=== PATIENT | female | born 1955 | race Two or more races ===

== ENCOUNTER 2019-07-15 19:46 | Inpatient (IN) | payer OTHER, BC ==
[~2019-07-15] VITALS: Ht 144.8 cm; Wt 50.0 kg
[2019-07-15 20:34] LABS: PARTIAL THROMBOPLASTIN TIME 25 SECONDS (22-32)
[2019-07-15 20:35] LABS: ALANINE AMINOTRANSFERASE 46 U/L (12-78); ALBUMIN 3.4 G/DL (3.4-5.0); ALBUMIN/GLOBULIN RATIO 0.8 (1.1-1.5); ALKALINE PHOSPHATASE 103 IU/L (46-116); ANION GAP 11 (8-16); ASPARTATE AMINO TRANSFERASE 44 U/L (10-37); BILIRUBIN,TOTAL 0.5 MG/DL (0.1-1.0); BLOOD UREA NITROGEN 20 MG/DL (7-18); BUN/CREATININE RATIO 18.7 (6.6-38.0); CALCIUM 8.7 MG/DL (8.5-10.1); CHLORIDE 108 MMOL/L (99-107); CREATININE 1.07 MG/DL (0.40-0.90); ETHANOL < 0.010 GM/DL (0.0-0.010); POTASSIUM 3.8 MMOL/L (3.5-5.1); SODIUM 143 MMOL/L (135-145); TOTAL CARBON DIOXIDE 24.1 MMOL/L (24-32); TOTAL PROTEIN 7.5 G/DL (6.4-8.2); eGFR 52 ML/MIN
[2019-07-15 20:37] LABS: BASOPHILS % (AUTO) 0.3 % (0-1); EOSINOPHILS # (AUTO) 0.2 X10'3 (0-0.9); EOSINOPHILS % (AUTO) 1.7 % (0-6); HEMATOCRIT 40.6 % (35.0-45.0); HEMOGLOBIN 13.8 g/dl (12.0-16.0); LYMPHOCYTES # (AUTO) 2.7 X10'3 (1.1-4.8); LYMPHOCYTES % (AUTO) 24.9 % (21-51); MEAN CORPUSCULAR HEMOGLOBIN 32.6 PG (27.0-31.0); MEAN PLATELET VOLUME 9.2 FL (7.4-10.4); MONOCYTES # (AUTO) 0.7 X10'3 (0-0.9); MONOCYTES % (AUTO) 6.7 % (2-12); NEUTROPHILS # (AUTO) 7.1 X10'3 (1.8-7.7); NEUTROPHILS % (AUTO) 66.4 % (42-75); PLATELET COUNT 172 X10'3 (140-440); RED BLOOD COUNT 4.23 X10'6 (4.20-5.60); RED CELL DISTRIBUTION WIDTH 12.5 % (11.5-14.5); WHITE BLOOD COUNT 10.7 X10'3 (4.5-11.0)
[2019-07-15 20:44] LABS: GLUCOSE 142 MG/DL (70-104)
--- NOTE | 2019-07-15 20:46 | NUR ---
patient to CT.
[2019-07-15] MEDS ORDERED: temazepam 15mg capsule PO PRN (21:00)
--- NOTE | 2019-07-15 21:06 | NUR ---
Patient back from CT, reports no pain as long a laying down.
--- NOTE | 2019-07-15 21:25 | NUR ---
pt remains in c collar, current vss. given adtl warm blanket , reports she is cold. temp 99.0. updated of the status of her and son (who are currently in ER also). Pt is calm and cooperative. Awaiting ct read.
--- NOTE | 2019-07-15 22:23 | NUR ---
WITH DR. KIRKPATRICK
[2019-07-15] MEDS ORDERED: MELO-102 PO (22:25)
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
[2019-07-15] MEDS ORDERED: HYDR25TA4 PO (22:26)
[2019-07-15] MEDS ORDERED: HYDR-4383 PO (22:27)
[2019-07-15] MEDS ORDERED: OSC500T PO (22:27)
[2019-07-15] MEDS ORDERED: ETAN25KI2 (22:28)
[2019-07-15] MEDS ORDERED: INSU100V9 SQ (22:28)
--- NOTE | 2019-07-15 22:36 | NUR ---
Patient to be admitted to Floor per Dr. Oscar.
--- NOTE | 2019-07-15 22:54 | NUR ---
Family at bedside.
--- NOTE | 2019-07-15 23:45 | NUR ---
Dr. Smith with patient and family.
[2019-07-15] MEDS ORDERED: potassium Cl 20 mEq SR tablet PO PRN ×2 (23:55)
[2019-07-15] MEDS ORDERED: magnesium 4gm in 100ml NS 100 ML IV PRN (23:55)
[2019-07-15] MEDS ORDERED: magnesium Cl slow-release 64mg tablet PO PRN (23:55)
[2019-07-15] MEDS ORDERED: mag hydrox/Alum hydrox/simeth 30ml oral suspension PO PRN (23:55)
[2019-07-15] MEDS ORDERED: magnesium hydroxide 30ml (MOM) UD suspension PO PRN (23:55)
[2019-07-15] MEDS ORDERED: ondansetron/PF 4mg/2ml inj IV PRN (23:55)
[2019-07-15] MEDS ORDERED: acetaminophen 325mg tablet PO PRN (23:55)
[2019-07-15] MEDS ORDERED: potassium CL 10mEq/100ml bag 100 ML IV PRN ×2 (23:55)
[2019-07-15] MEDS ORDERED: magnesium 2GM in 50ml NS 50 ML IV PRN (23:55)
[2019-07-16] VITALS (7 sets, daily range): BP systolic 99–117; BP diastolic 45–59
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
--- NOTE | 2019-07-16 00:40 | NUR ---
Patient arrived to room 310 via gurney. pt was hooked up to bedside monitor. arrived with all known belongings and family is at the bedside.
[2019-07-16] MEDS: normal saline 1000ml 1,000 ML IV SCH ×2 (00:50→14:12)
[2019-07-16 01:39] LABS: CREATINE KINASE 294 U/L (26-192)
[2019-07-16] MEDS ORDERED: HYDR200T84 PO (01:55)
[2019-07-16 04:30] LABS: BASOPHILS % (AUTO) 0.3 % (0-1); EOSINOPHILS % (AUTO) 0.3 % (0-6); HEMATOCRIT 36.4 % (35.0-45.0); HEMOGLOBIN 12.5 g/dl (12.0-16.0); LYMPHOCYTES % (AUTO) 14.5 % (21-51); MEAN CORPUSCULAR HEMOGLOBIN 32.8 PG (27.0-31.0); MEAN CORPUSCULAR HGB CONC 34.4 g/dL (33.0-36.5); MEAN CORPUSCULAR VOLUME 95.1 FL (78-98); MEAN PLATELET VOLUME 8.9 FL (7.4-10.4); MONOCYTES # (AUTO) 0.6 X10'3 (0-0.9); NEUTROPHILS # (AUTO) 5.2 X10'3 (1.8-7.7); NEUTROPHILS % (AUTO) 75.9 % (42-75); PLATELET COUNT 148 X10'3 (140-440); RED BLOOD COUNT 3.82 X10'6 (4.20-5.60); RED CELL DISTRIBUTION WIDTH 12.7 % (11.5-14.5); WHITE BLOOD COUNT 6.9 X10'3 (4.5-11.0)
[2019-07-16 04:31] LABS: ALANINE AMINOTRANSFERASE 42 U/L (12-78); ALBUMIN 3.1 G/DL (3.4-5.0); ALBUMIN/GLOBULIN RATIO 0.9 (1.1-1.5); ALKALINE PHOSPHATASE 90 IU/L (46-116); ANION GAP 10 (8-16); ASPARTATE AMINO TRANSFERASE 35 U/L (10-37); BILIRUBIN,TOTAL 0.9 MG/DL (0.1-1.0); BLOOD UREA NITROGEN 16 MG/DL (7-18); BUN/CREATININE RATIO 22.2 (6.6-38.0); CALCIUM 8.6 MG/DL (8.5-10.1); CHLORIDE 110 MMOL/L (99-107); CREATININE 0.72 MG/DL (0.40-0.90); GLUCOSE 124 MG/DL (70-104); POTASSIUM 3.8 MMOL/L (3.5-5.1); SODIUM 143 MMOL/L (135-145); TOTAL CARBON DIOXIDE 23.4 MMOL/L (24-32); TOTAL PROTEIN 6.7 G/DL (6.4-8.2); eGFR 82 ML/MIN
[2019-07-16 04:34] LABS: MAGNESIUM 1.7 MG/DL (1.5-2.4); PHOSPHORUS 3.4 MG/DL (2.3-4.5)
[2019-07-16] MEDS: HYDROcodone/acetaminophen 5mg/325mg tablet PO PRN (04:36)
--- NOTE | 2019-07-16 06:00 | NUR ---
reviewed and agreed with OLENA Scott's charting
--- NOTE | 2019-07-16 06:05 | NUR ---
Problems reprioritized. Patient report given, questions answered & plan of care reviewed with OLENA Manning.
[2019-07-16] MEDS: K and/or MAG REPLACEMENT MC SCH (07:35)
[2019-07-16] MEDS ORDERED: ATOR40TA72 PO (07:50)
[2019-07-16 08:36] LABS: CLARITY,URINE CLEAR (Clear); COLOR,URINE YELLOW (Yellow); GLUCOSE, URINE NEGATIVE (Neg); KETONES,URINE NEGATIVE (Neg); NITRITES, URINE NEGATIVE (Neg); OCCULT BLOOD,URINE NEGATIVE (Neg); PROTEIN,URINE NEGATIVE (Neg); UA COLLECTION TYPE NON-SPECIFIED; URINE AMPHETAMINE SCREEN NEGATIVE (Neg); URINE BARBITUATE SCREEN NEGATIVE (Neg); URINE BENZODIAZEPINES SCREEN NEGATIVE (Neg); URINE CANNABINOID SCREEN NEGATIVE (Neg); URINE COCAINE SCREEN NEGATIVE (Neg); URINE METHADONE SCREEN NEGATIVE (Neg); URINE OPIATE SCREEN POSITIVE (Neg); URINE PHENCYCLIDINE SCREEN NEGATIVE (Neg)
[2019-07-16 08:37] LABS: LEUKOCYTE ESTERASE ,URINE NEGATIVE (Neg); UROBILINOGEN,URINE 0.2 E.U/dL (0.2-1.0)
--- NOTE | 2019-07-16 09:35 | NUR ---
Paged hospitalist, "Kerri [phone]- Can you address Atorvastin and Plaquenil for Katelnyn Dave in room 310."
[2019-07-16] MEDS: HYDROcodone/acetaminophen 10/325mg tab PO PRN (10:20)
--- NOTE | 2019-07-16 13:12 | NUR ---
Paged hospitalist, "Kerri [phone]- please call [phone] not able to get MRI today"
--- NOTE | 2019-07-16 18:22 | NUR ---
Paged hospitalist, "Kerri [phone]- Room 310 Katleynn Dave- Troponins 0.28, 0.25, 0.27 (most recent) today"
--- NOTE | 2019-07-16 18:25 | NUR ---
Problems reprioritized. Patient report given, questions answered & plan of care reviewed with Edwin HYATT.
[2019-07-17 02:00] VITALS: BP 122/64
[2019-07-17] MEDS: HYDROcodone/acetaminophen 10/325mg tab PO PRN (02:43)
[2019-07-17] MEDS: normal saline 1000ml 1,000 ML IV SCH ×2 (04:30→20:29)
[2019-07-17 05:34] LABS: BASOPHILS % (AUTO) 0.7 % (0-1); EOSINOPHILS # (AUTO) 0.1 X10'3 (0-0.9); EOSINOPHILS % (AUTO) 2.6 % (0-6); HEMATOCRIT 33.8 % (35.0-45.0); HEMOGLOBIN 11.6 g/dl (12.0-16.0); LYMPHOCYTES # (AUTO) 1.7 X10'3 (1.1-4.8); LYMPHOCYTES % (AUTO) 35.4 % (21-51); MEAN CORPUSCULAR HEMOGLOBIN 32.9 PG (27.0-31.0); MEAN CORPUSCULAR HGB CONC 34.3 g/dL (33.0-36.5); MEAN PLATELET VOLUME 8.9 FL (7.4-10.4); MONOCYTES # (AUTO) 0.6 X10'3 (0-0.9); MONOCYTES % (AUTO) 11.6 % (2-12); NEUTROPHILS # (AUTO) 2.4 X10'3 (1.8-7.7); NEUTROPHILS % (AUTO) 49.7 % (42-75); PLATELET COUNT 134 X10'3 (140-440); RED BLOOD COUNT 3.52 X10'6 (4.20-5.60); WHITE BLOOD COUNT 4.8 X10'3 (4.5-11.0)
[2019-07-17 05:53] LABS: ALANINE AMINOTRANSFERASE 32 U/L (12-78); ALBUMIN 2.6 G/DL (3.4-5.0); ALBUMIN/GLOBULIN RATIO 0.7 (1.1-1.5); ALKALINE PHOSPHATASE 80 IU/L (46-116); ANION GAP 9 (8-16); ASPARTATE AMINO TRANSFERASE 23 U/L (10-37); BLOOD UREA NITROGEN 13 MG/DL (7-18); BUN/CREATININE RATIO 22.8 (6.6-38.0); CHLORIDE 110 MMOL/L (99-107); CREATININE 0.57 MG/DL (0.40-0.90); GLUCOSE 123 MG/DL (70-104); MAGNESIUM 1.6 MG/DL (1.5-2.4); PHOSPHORUS 2.8 MG/DL (2.3-4.5); POTASSIUM 3.9 MMOL/L (3.5-5.1); SODIUM 142 MMOL/L (135-145); TOTAL CARBON DIOXIDE 23.1 MMOL/L (24-32); TOTAL PROTEIN 6.1 G/DL (6.4-8.2); eGFR > 90 ML/MIN
[2019-07-17 06:00] VITALS: BP 121/58
--- NOTE | 2019-07-17 06:13 | NUR ---
Gave report to Cassie. All questions were answered
--- NOTE | 2019-07-17 06:15 | NUR ---
Problems reprioritized. Patient report given, questions answered & plan of care reviewed with Gregoria.
--- NOTE | 2019-07-17 06:20 | NUR ---
Patient in room MED 310. I have received report from shasha/tariq and had the opportunity to ask questions and assume patient care.
--- NOTE | 2019-07-17 07:30 | NUR ---
paged MRI for an ETA
[2019-07-17] MEDS: K and/or MAG REPLACEMENT MC SCH (08:00)
[2019-07-17] MEDS: hydroxychloroquine 200mg tablet PO SCH (09:08)
[2019-07-17] MEDS: atorvastatin 20mg tablet PO SCH (09:08)
[2019-07-17 11:00] VITALS: BP 125/55
[2019-07-17] MEDS: acetaminophen 325mg tablet PO PRN (12:26)
--- NOTE | 2019-07-17 12:38 | NUR ---
paged MRI again "please call [phone] to let me know when Katelynn Dave will be going for MRI. thank you, Sandee"
[2019-07-17 15:00] VITALS: BP 107/49
[2019-07-17 18:00] VITALS: BP 119/56
--- NOTE | 2019-07-17 18:20 | NUR ---
ORDER FOR TSLO BRACE PLACED BY DAY BENEFITS MANAGER FOLLOWING RESULTS OF MRI, PER DR. KIRKPATRICK'S INSTRUCTIONS. SUPERVISOR ROD PLACING PAGED. AWAITING RESPONSE.
--- NOTE | 2019-07-17 19:45 | NUR ---
SPOKE WITH BRANDIE STERILIZER OPERATOR REGARDING TLSO BRACE FOR PATIENT. HE WILL BE IN TO PLACE ON PATIENT THIS EVENING.
[2019-07-17] MEDS: HYDROcodone/acetaminophen 5mg/325mg tablet PO PRN (20:27)
[2019-07-17 22:00] VITALS: BP 109/58
[2019-07-18 02:00] VITALS: BP 105/50
[2019-07-18 05:02] LABS: BASOPHILS % (AUTO) 0.9 % (0-1); EOSINOPHILS # (AUTO) 0.2 X10'3 (0-0.9); EOSINOPHILS % (AUTO) 3.4 % (0-6); HEMATOCRIT 34.9 % (35.0-45.0); HEMOGLOBIN 12.1 g/dl (12.0-16.0); LYMPHOCYTES # (AUTO) 1.7 X10'3 (1.1-4.8); LYMPHOCYTES % (AUTO) 34.2 % (21-51); MEAN CORPUSCULAR HGB CONC 34.7 g/dL (33.0-36.5); MEAN CORPUSCULAR VOLUME 95.2 FL (78-98); MEAN PLATELET VOLUME 8.6 FL (7.4-10.4); MONOCYTES # (AUTO) 0.5 X10'3 (0-0.9); MONOCYTES % (AUTO) 10.3 % (2-12); NEUTROPHILS # (AUTO) 2.5 X10'3 (1.8-7.7); NEUTROPHILS % (AUTO) 51.2 % (42-75); PLATELET COUNT 140 X10'3 (140-440); RED BLOOD COUNT 3.67 X10'6 (4.20-5.60); RED CELL DISTRIBUTION WIDTH 12.6 % (11.5-14.5)
[2019-07-18 05:09] LABS: ALANINE AMINOTRANSFERASE 42 U/L (12-78); ALBUMIN 2.8 G/DL (3.4-5.0); ALBUMIN/GLOBULIN RATIO 0.8 (1.1-1.5); ALKALINE PHOSPHATASE 99 IU/L (46-116); ANION GAP 9 (8-16); ASPARTATE AMINO TRANSFERASE 32 U/L (10-37); BILIRUBIN,TOTAL 0.9 MG/DL (0.1-1.0); BLOOD UREA NITROGEN 8 MG/DL (7-18); BUN/CREATININE RATIO 13.8 (6.6-38.0); CALCIUM 8.5 MG/DL (8.5-10.1); CHLORIDE 111 MMOL/L (99-107); CREATININE 0.58 MG/DL (0.40-0.90); GLUCOSE 116 MG/DL (70-104); MAGNESIUM 1.7 MG/DL (1.5-2.4); PHOSPHORUS 3.1 MG/DL (2.3-4.5); POTASSIUM 3.8 MMOL/L (3.5-5.1); SODIUM 143 MMOL/L (135-145); TOTAL CARBON DIOXIDE 23.3 MMOL/L (24-32); TOTAL PROTEIN 6.5 G/DL (6.4-8.2); eGFR > 90 ML/MIN
[2019-07-18 06:00] VITALS: BP 119/55
--- NOTE | 2019-07-18 06:38 | NUR ---
Problems reprioritized. Patient report given, questions answered & plan of care reviewed with LEONEL HYATT.
--- NOTE | 2019-07-18 06:42 | NUR ---
Problems reprioritized. Patient report given, questions answered & plan of care reviewed with LEONEL HYATT.
[2019-07-18] MEDS: acetaminophen 325mg tablet PO PRN (08:46)
[2019-07-18] MEDS: atorvastatin 20mg tablet PO SCH (08:47)
[2019-07-18] MEDS: hydroxychloroquine 200mg tablet PO SCH (08:47)
[2019-07-18] MEDS: K and/or MAG REPLACEMENT MC SCH (08:52)
[2019-07-18] MEDS: normal saline 1000ml 1,000 ML IV SCH ×2 (11:14→23:24)
[2019-07-18 11:26] VITALS: BP 110/52
[2019-07-18 15:00] VITALS: BP_SYST 103; BP_SYST 148; BP_DIAS 54
--- NOTE | 2019-07-18 15:00 | NUR ---
Kerrickee documentation and med administration: I have reviewed and agree with all interventions, assessments performed and documented by . Addendum: 07/18/19 at 1811 by Kerri Rodriguez RN Documentation and med administration reviewed and documented by Mis HYATT.
--- NOTE | 2019-07-18 16:43 | NUR ---
Paged hospitalist re: back brace issue, wishes for CM to get involved and for patient to be re-fitted for back brace prior to discharge as to get a more accurate fit since the small brace she currently has still fits too big.
[2019-07-18 18:00] VITALS: BP 118/67
--- NOTE | 2019-07-18 18:57 | NUR ---
Problems reprioritized. Patient report given, questions answered & plan of care reviewed with OLENA Pineda and Geovani.
[2019-07-18] MEDS: HYDROcodone/acetaminophen 10/325mg tab PO PRN (20:49)
[2019-07-18 22:24] VITALS: BP 119/74
[2019-07-19 01:48] LABS: BASOPHILS % (AUTO) 0.8 % (0-1); EOSINOPHILS # (AUTO) 0.2 X10'3 (0-0.9); EOSINOPHILS % (AUTO) 3.6 % (0-6); HEMATOCRIT 32.6 % (35.0-45.0); HEMOGLOBIN 11.4 g/dl (12.0-16.0); LYMPHOCYTES # (AUTO) 1.8 X10'3 (1.1-4.8); LYMPHOCYTES % (AUTO) 36.3 % (21-51); MEAN CORPUSCULAR HGB CONC 35.1 g/dL (33.0-36.5); MEAN CORPUSCULAR VOLUME 94.1 FL (78-98); MEAN PLATELET VOLUME 8.2 FL (7.4-10.4); MONOCYTES # (AUTO) 0.6 X10'3 (0-0.9); MONOCYTES % (AUTO) 12.1 % (2-12); NEUTROPHILS # (AUTO) 2.3 X10'3 (1.8-7.7); NEUTROPHILS % (AUTO) 47.2 % (42-75); PLATELET COUNT 145 X10'3 (140-440); RED BLOOD COUNT 3.47 X10'6 (4.20-5.60); RED CELL DISTRIBUTION WIDTH 12.4 % (11.5-14.5); WHITE BLOOD COUNT 4.9 X10'3 (4.5-11.0)
[2019-07-19 02:00] VITALS: BP 112/54
[2019-07-19 02:05] LABS: ALANINE AMINOTRANSFERASE 46 U/L (12-78); ALBUMIN 2.5 G/DL (3.4-5.0); ALBUMIN/GLOBULIN RATIO 0.7 (1.1-1.5); ALKALINE PHOSPHATASE 108 IU/L (46-116); ANION GAP 8 (8-16); ASPARTATE AMINO TRANSFERASE 36 U/L (10-37); BILIRUBIN,TOTAL 0.9 MG/DL (0.1-1.0); BLOOD UREA NITROGEN 13 MG/DL (7-18); BUN/CREATININE RATIO 23.2 (6.6-38.0); CALCIUM 8.5 MG/DL (8.5-10.1); CHLORIDE 110 MMOL/L (99-107); CREATININE 0.56 MG/DL (0.40-0.90); GLUCOSE 120 MG/DL (70-104); MAGNESIUM 1.7 MG/DL (1.5-2.4); PHOSPHORUS 3.6 MG/DL (2.3-4.5); POTASSIUM 3.6 MMOL/L (3.5-5.1); SODIUM 143 MMOL/L (135-145); TOTAL CARBON DIOXIDE 25.4 MMOL/L (24-32); eGFR > 90 ML/MIN
[2019-07-19] MEDS: normal saline 1000ml 1,000 ML IV SCH (03:34)
[2019-07-19 06:00] VITALS: BP 124/61
--- NOTE | 2019-07-19 06:25 | NUR ---
Gave report to Cassie. All questions were answered.
--- NOTE | 2019-07-19 06:56 | NUR ---
Patient in room MED 310. I have received report from Edwin and had the opportunity to ask questions and assume patient care.
[2019-07-19] MEDS: atorvastatin 20mg tablet PO SCH (07:22)
[2019-07-19] MEDS: HYDROcodone/acetaminophen 5mg/325mg tablet PO PRN (07:22)
[2019-07-19] MEDS: hydroxychloroquine 200mg tablet PO SCH (07:22)
[2019-07-19] MEDS: K and/or MAG REPLACEMENT MC SCH (08:00)
[2019-07-19 11:20] VITALS: BP 109/48
--- NOTE | 2019-07-19 14:11 | NUR ---
Paged Dr. Dumont about house convenience "re: Jolie Pace in 310. Is it okay to move this patient to Ortho floor, non-tele? thank you, Sandee IGLESIAS [phone]"
[2019-07-19 15:00] VITALS: BP 127/61
[2019-07-19 18:00] VITALS: BP 129/56
--- NOTE | 2019-07-19 18:00 | NUR ---
Patient in room MED 310. I have received report from Mis HYATT and had the opportunity to ask questions and assume patient care.
--- NOTE | 2019-07-19 19:00 | NUR ---
Pt refused auscultation during physical assessment.
--- NOTE | 2019-07-19 21:24 | NUR ---
Patient's daughter, Amelia Price called to say that she will be coming to pick her mother up from the hospital tomorrow and wants to know what time she will be discharged. I explained to the patient that the patient will need to be fitted for a TLSO that will be appropriate for her. There is one in her room but it does not fit. I received in report from Mis that the patient will be fitted by [facility] who fit and fill prescriptions for orthotics her in [place]. The patient will not be discharged until this happens. I gave the daughter our unit phone number and asked that she call before she leaves to drive to [place] to waste picker her mother since they live in [facility] which is apparently 3 hours away. She stated that she understood and will call at about 0900 on 07/20/19.
[2019-07-19 22:00] VITALS: BP 114/53
[2019-07-20 02:00] VITALS: BP 122/51
[2019-07-20] MEDS: normal saline 1000ml 1,000 ML IV SCH ×2 (04:00→09:38)
--- NOTE | 2019-07-20 05:37 | NUR ---
Orienteer documentation: I have reviewed and agree with interventions, assessments performed and documented by OLENA Brown. Addendum: 07/20/19 at 0544 by Shelbi Stewart RN Student Medication Administration: For this medication-pass time frame, all medication were reviewed, dispensed, administered and documented per hospital policy by OLENA Brown.
[2019-07-20 06:00] VITALS: BP 124/56
--- NOTE | 2019-07-20 06:00 | NUR ---
Patient in room MED 316. I have received report from Shelbi RN and Ryann Brown "O" and had the opportunity to ask questions and assume patient care.
[2019-07-20 06:07] LABS: BASOPHILS % (AUTO) 0.9 % (0-1); EOSINOPHILS # (AUTO) 0.1 X10'3 (0-0.9); EOSINOPHILS % (AUTO) 3.2 % (0-6); HEMATOCRIT 33.8 % (35.0-45.0); HEMOGLOBIN 11.9 g/dl (12.0-16.0); LYMPHOCYTES # (AUTO) 1.4 X10'3 (1.1-4.8); LYMPHOCYTES % (AUTO) 31.9 % (21-51); MEAN CORPUSCULAR HEMOGLOBIN 32.7 PG (27.0-31.0); MEAN CORPUSCULAR HGB CONC 35.1 g/dL (33.0-36.5); MEAN PLATELET VOLUME 7.8 FL (7.4-10.4); MONOCYTES # (AUTO) 0.6 X10'3 (0-0.9); MONOCYTES % (AUTO) 12.9 % (2-12); NEUTROPHILS # (AUTO) 2.2 X10'3 (1.8-7.7); NEUTROPHILS % (AUTO) 51.1 % (42-75); PLATELET COUNT 171 X10'3 (140-440); RED BLOOD COUNT 3.64 X10'6 (4.20-5.60); RED CELL DISTRIBUTION WIDTH 12.6 % (11.5-14.5); WHITE BLOOD COUNT 4.4 X10'3 (4.5-11.0)
[2019-07-20 06:31] LABS: ALANINE AMINOTRANSFERASE 43 U/L (12-78); ALBUMIN 2.8 G/DL (3.4-5.0); ALBUMIN/GLOBULIN RATIO 0.8 (1.1-1.5); ALKALINE PHOSPHATASE 114 IU/L (46-116); ANION GAP 9 (8-16); ASPARTATE AMINO TRANSFERASE 27 U/L (10-37); BILIRUBIN,TOTAL 1.3 MG/DL (0.1-1.0); BLOOD UREA NITROGEN 8 MG/DL (7-18); BUN/CREATININE RATIO 14.3 (6.6-38.0); CALCIUM 8.5 MG/DL (8.5-10.1); CHLORIDE 110 MMOL/L (99-107); CREATININE 0.56 MG/DL (0.40-0.90); GLUCOSE 100 MG/DL (70-104); MAGNESIUM 1.5 MG/DL (1.5-2.4); PHOSPHORUS 3.6 MG/DL (2.3-4.5); POTASSIUM 3.6 MMOL/L (3.5-5.1); SODIUM 144 MMOL/L (135-145); TOTAL CARBON DIOXIDE 24.8 MMOL/L (24-32); TOTAL PROTEIN 6.4 G/DL (6.4-8.2); eGFR > 90 ML/MIN
--- NOTE | 2019-07-20 06:45 | NUR ---
Problems reprioritized. Patient report given, questions answered & plan of care reviewed with Kendal RN.
[2019-07-20] MEDS: K and/or MAG REPLACEMENT MC SCH (07:44)
[2019-07-20] MEDS: acetaminophen 325mg tablet PO PRN (07:56)
[2019-07-20] MEDS: atorvastatin 20mg tablet PO SCH (07:56)
[2019-07-20] MEDS: hydroxychloroquine 200mg tablet PO SCH (07:56)
--- NOTE | 2019-07-20 10:35 | NUR ---
Per Case, PT back brace fits patient. Patient has no reports of pain or discomfort with brace on. Dr. Dumont notified. plan is to discharge, per .
--- NOTE | 2019-07-20 10:49 | NUR ---
Called daughter, notified her of patients discharge. Confirmed with daughter, patient has follow up apt with neurosurgeon, Dr. Griffith in 4 weeks, and patient will need follow up xrays prior to that scheduled apt. no other questions or concerns at this time.
[2019-07-20 11:00] VITALS: BP 104/73
--- NOTE | 2019-07-20 12:37 | NUR ---
Spoke with Anamaria at Dr. Samuel office in [place]. Patient needs follow up apt in 4 weeks with neurosurgeon, Dr. Griffith, and have xrays done, prior to apt. Faxed records and face sheet to Anamaria. Tried calling to schedule apt, office is now closed from 1230 to 1330. Will call back after lunch hour.
--- NOTE | 2019-07-20 14:47 | NUR ---
Per MD, patient stable for discharge. All discharge instructions reviewed with patient and family; all questions answered. No new prescriptions ordered, patient to continue home medications. Patient refused pain medications, no pain medications prescribed. PIV discontinues, tip intact, patient tolerated well, no complications. Telemetry discontinued. Pt wheeled to lobby by staff. Mode of transportation: private vehicle.
== END 2019-07-20 14:05 | disposition home or self-care (01) | DRG 551 ==
LOC: ER 19:47 → MED 3N 07-16 00:46 → CMPBEDREQ 07-16 18:05
PROVIDERS: ADMIT Family Medicine; ATTEND Family Medicine
DX: S22.080A Wedge compression fracture of T11-T12 vertebra, initial encounter for closed fracture (principal); N17.0 Acute kidney failure with tubular necrosis; S22.20XA Unspecified fracture of sternum, initial encounter for closed fracture; S27.321A Contusion of lung, unilateral, initial encounter; E11.9 Type 2 diabetes mellitus without complications; I10 Essential (primary) hypertension; K57.30 Diverticulosis of large intestine without perforation or abscess without bleeding; E86.0 Dehydration; K80.20 Calculus of gallbladder without cholecystitis without obstruction; M06.9 Rheumatoid arthritis, unspecified; M19.90 Unspecified osteoarthritis, unspecified site; M47.812 Spondylosis without myelopathy or radiculopathy, cervical region; S20.212A Contusion of left front wall of thorax, initial encounter; S86.919A Strain of unspecified muscle(s) and tendon(s) at lower leg level, unspecified leg, initial encounter; Y93.89 Activity, other specified; Y92.89 Other specified places as the place of occurrence of the external cause; Y99.8 Other external cause status; Z88.0 Allergy status to penicillin; V87.7XXA Person injured in collision between other specified motor vehicles (traffic), initial encounter; Z88.8 Allergy status to other drugs, medicaments and biological substances
CPT/HCPCS: 36415; 70450; 71250; 72125; 72146; 72148; 73564; 74176; 80053; 80305; 80320; 81003; 82550; 83036; 83735; 84100; 84484; 85025; 85610; 85730; 87081; 93005; 93306; 97162; 97530; 99285; G0378; J7030